=== PATIENT | female | born 1945 | race Caucasian/White ===

== ENCOUNTER 2017-06-06 07:27 | Emergency (ER) | payer MEDICARE, OTHER ==
[~2017-06-06] VITALS: Ht 172.7 cm; Wt 72.3 kg
[~2017-06-06 07:27] MED LIST: ASPI-973 PO; CALC-952 PO; CHOL10008 PO; DICL100G8 TOPICAL; ESTR42.52 VAGINAL; L.AC1CAP6 PO; LABE100T4 PO; LISI10TA PO; OMEG-145 PO; OMEP20CA11 PO; PRAV20TA2 PO; SULFACETAMIDE 10% LEFT_EYE; UBID100C25 PO
[2017-06-06 07:30] VITALS: BP 112/76; PULSE 63; RESP 16; O2SAT 95
--- NOTE | 2017-06-06 08:13 | ED.REPORT ---
HPI-General Illness Date of Service Jun 06, 2017 ED Provider: James Taveras MD Pt is a 72 year old female with a hx of CAD, HTN and cancer presenting to the ED complaining of a blister on her lip onset this morning when she woke up. She states that last time she had this, she was put on Prednisone and Acyclovir. Denies any other symptoms at this time. Nursing Notes Stated Complaint: MEDICATION NEED,HERPES WORT Chief Complaint: General Complaint Nursing Notes Reviewed: Yes Allergies: Coded Allergies: No Known Allergies (Unverified , 06/06/17) Scheduled ([Sulfacetamide 10% ]) 0.5 INCH LEFT_EYE HS Acyclovir (Acyclovir) 200 Mg Capsule 200 MG PO 5XD Aspirin (Aspirin) 81 Mg Tablet 81 MG PO Twice a week Calcium Carbonate/Vitamin D3 (Calcium 500 mg Chewable Tablet) 1 Each Tab.chew 1 EACH PO DAILY Cholecalciferol (Vitamin D3) (Vitamin D3) 1,000 Unit Tab.chew 1,000 UNIT PO DAILY Diclofenac Gel (Voltaren Gel) 100 Gm Tube 1 APPLIC TOPICAL QID Estradiol (Estrace) 42.5 Gm Cream.appl 1 G VAGINAL WEEKLY L.acidoph & Paracasei,B.lactis (Probiotic) 10 Billion Cell Capsule 2 EACH PO DAILY Labetalol (Labetalol) 100 Mg Tablet 100 MG PO QPM Labetalol (Labetalol) 100 Mg Tablet 50 MG PO QAM Lisinopril (Lisinopril) 10 Mg Tablet 10 MG PO DAILY [place]-3/Dha/Epa/Fish Oil ([place] 3 500 Softgel) 500 Mg (200 Mg-300 Mg)-1,000 Mg Capsule 1 EACH PO DAILY Omeprazole (Omeprazole) 20 Mg Capsule.dr 20 MG PO DAILY Pravastatin (Pravastatin) 20 Mg Tablet 20 MG PO DAILY Prednisone (PredniSONE) 20 Mg Tablet 40 MG PO DAILY Ubidecarenone (Co Q-10) 100 Mg Capsule 100 MG PO BID General Time Seen by MD: 07:43 Chief Complaint Other (Blister) Hx Obtained From: Patient Arrived By: Walk-in Sudden in Onset?: Yes Onset Occurred: Just prior to arrival Symptom Duration: Since onset Location: : Face Quality: Painful Severity: Current: Mild Severity: Maximum: Mild Recent Healthcare: No recent doctor visit, No recent hospitalization Similar Sx Previous: Yes Past Medical History Past Medical History Reports: Cancer, Coronary artery disease, Hypertension Past Surgical History Reports: Pacemaker insertion Smoking History Never Smoker Social History Alcohol Use: Denies alcohol use Drug Use: Denies drug use Other Social History: Ambulatory Status Independent Review of Systems Full Review of Systems Respiratory: Denies: Shortness of breath Cardiovascular: Denies: Chest pain, Syncope GI: Denies: Abdominal pain, Vomiting Skin: Reports Rash Complete sys rev & neg: except as marked. Physical Exam Vital Signs Vital Signs Date Time Temp Pulse Resp B/P Pulse Ox O2 Delivery O2 Flow Rate FiO2 06/06/17 07:30 36.9 63 16 112/76 95 Room Air Initial VS: Reviewed General/Constitutional: Well-developed, Well-nourished Head / Eyes: Atraumatic, Normocephalic, PERRL ENT: Mucous membranes moist, Conjunctiva normal, No scleral icterus Neck: Supple, Non-tender, Full range of motion Respiratory: No respiratory distress Cardiovascular: Intact distal pulses Abdomen / GI: No distention Extremities: Vascular intact, Neuro intact, No swelling, No tenderness Neurologic: Alert, Oriented, Nonfocal Psychiatric: Mood/affect normal, Behavior normal, Normal thought content Skin: Atraumatic, Color NL, Warm, Dry, Intact Re-Eval/Medical Decision Med Decision/Clinical Course 72-year-old female history of oral herpes presenting with herpes flare. Reports a herpes lesion left upper lip. It woods. Denies any fevers. No oropharyngeal involvement. On exam she has a small erythematous papule left upper lip. Cannot rule out developing HSV. We will treat with acyclovir. Return precautions given. Time of Eval: 08:38 Patient Status: Condition improved Re-Evaluation/Progress Note: Discussed plan for discharge. Pt understands and agrees with plan. Counseled Regarding: Diagnosis, Lab results, Need for follow-up, When/why to return to ED Discharge & Departure Primary Impression: HSV (herpes simplex virus) infection Disposition: Home Discharge Condition All VS Reviewed: Yes Condition: Improved Patient Instructions: Oral Herpes Simplex Virus Infections (ED) Additional Instructions: Take the antibiotic as prescribed. Return to the ER if you develop any new or worsening symptoms. Good luck with your move! Referrals: April Huynh (PCP) Scribe Attestation Portions of this note were transcribed by Christianne Sanchez. I, Dr. Taveras personally performed the history, physical exam and medical decision-making; I reviewed and confirmed the accuracy of the information in the transcribed note. Signed by: Jyoti Porter, 06/06/2017 at 0837. copies to: April Huynh Ben M MD Jun 06, 2017 08:13 CHRISTIANNE SANCHEZ Jun 06, 2017 08:18
[2017-06-06] MEDS ORDERED: PRE20 PO (08:25)
[2017-06-06] MEDS ORDERED: ACYC200C PO (08:25)
== END 2017-06-06 08:50 | disposition home or self-care (01) ==
LOC: SED 07:27
DX: B00.9 Herpesviral infection, unspecified (principal); I25.10 Atherosclerotic heart disease of native coronary artery without angina pectoris; I10 Essential (primary) hypertension; C80.1 Malignant (primary) neoplasm, unspecified; Z95.0 Presence of cardiac pacemaker; Z79.82 Long term (current) use of aspirin